=== PATIENT | male | born 1975 | race Caucasian/White ===

== ENCOUNTER 2017-08-15 11:33 | Inpatient (IN) | payer OTHER ==
[2017-08-15 12:14] VITALS: BMI 34.1
--- NOTE | 2017-08-15 14:22 | HP ---
CIWA Score - CIWA Score Nausea/Vomitin-Mild Nausea/No Vomiting Muscle Tremors: 4-Moderate,w/Arms Extend Anxiety: 4-Mod. Anxious/Guarded Agitation: 4-Moderately Restless Paroxysmal Sweats: 1-Minimal Palms Moist Orientation: 0-Oriented Tacttile Disturbances: 1-Very Mild Itch/Numbness Auditory Disturbances: 0-None Visual Disturbances: 0-None Headache: 0-None Present CIWA-Ar Total Score: 15 Admission ROS BHS - HPI Chief Complaint: alcohol withdrawal sx Allergies/Adverse Reactions: Allergies Allergy/AdvReac Type Severity Reaction Status Date / Time No Known Allergies Allergy Verified 08/15/17 12:04 History of Present Illness: 42 years old male with long history of alcohol dependence has legs neuropathy is admitted to detox cirrhosis of the liver treated with TACE implant 11/2016 and 04/2017 radiation, recommended surgically removal of the cancer cell or liver transplant Exam Limitations: No Limitations - Ebola screening Have you traveled outside of the country in the last 21 days: No Have you had contact with anyone from an Ebola affected area: No Have you been sick,other than usual withdrawal symptoms: No Do you have a fever: No - Review of Systems Constitutional: Changes in sleep, Weight Stable EENT: reports: No Symptoms Reported Respiratory: reports: No Symptoms reported Cardiac: reports: No Symptoms Reported GI: reports: Nausea, Poor Fluid Intake, Abdominal cramping : reports: No Symptoms Reported Musculoskeletal: reports: No Symptoms Reported Integumentary: reports: Rash (mid chest) Neuro: reports: Tremors Endocrine: reports: No Symptoms Reported Hematology: reports: No Symptoms Reported Psychiatric: reports: Judgement Intact, Mood/Affect Appropiate, Orientated x3 Other Systems: Reviewed and Negative Patient History - Patient Medical History Hx Anemia: No Hx Asthma: No Hx Chronic Obstructive Pulmonary Disease (COPD): No Hx Cancer: No Hx Cardiac Disorders: No Hx Congestive Heart Failure: No Hx Hypertension: No Hx Hypercholesterolemia: No Hx Pacemaker: No HX Cerebrovascular Accident: No Hx Seizures: No Hx Dementia: No Hx Diabetes: Yes (borderline) Hx Gastrointestinal Disorders: No Hx Liver Disease: Yes (ENLARGED LIVER "BLACK DOTS" ON LIVER AND LUNG) Hx Genitourinary Disorders: No Hx Sexually Transmitted Disorders: No Hx Renal Disease (ESRD): No Hx Thyroid Disease: No Hx Human Immunodeficiency Virus (HIV): No Hx Hepatitis C: No Hx Depression: No Hx Suicide Attempt: No Hx Bipolar Disorder: No Hx Schizophrenia: No - Patient Surgical History Past Surgical History: Yes Hx Neurologic Surgery: No Hx Cataract Extraction: No Hx Cardiac Surgery: No Hx Lung Surgery: No Hx Breast Surgery: No Hx Breast Biopsy: No Hx Abdominal Surgery: No Hx Appendectomy: No Hx Cholecystectomy: No Hx Genitourinary Surgery: No Hx Orthopedic Surgery: No Other Surgical History: implanted TACE 11/2016 Anesthesia Reaction: No - PPD History Previous Implant?: Yes Implanted On Prior [facility] Admission?: Yes Date: 11/13/15 Results: 0 mm - Smoking Cessation Smoking history: Never smoked Have you smoked in the past 12 months: No Hx Chewing Tobacco Use: No Initiated information on smoking cessation: No - Substance & Tx. History Hx Alcohol Use: Yes Hx Substance Use: No Substance Use Type: Alcohol Hx Substance Use Treatment: No - Substances Abused Alcohol-beer Route: Oral Frequency: Daily Amount used: 10-6 pks. Age of first use: 11 Date of Last Use: 08/14/17 Family Disease History - Family Disease History Family Disease History: [place]: Father Admission Physical Exam S - Vital Signs Vital Signs: Vital Signs - 24 hr 08/15/17 12:06 Temperature 97.7 F Pulse Rate 98 H Respiratory 20 Rate Blood Pressure 159/129 - Physical General Appearance: Yes: Appropriately Dressed, Mild Distress, Tremorous, Irritable, Sweating, Anxious HEENTM: Yes: Hearing grossly Normal, Normocephalic, Normal Voice Respiratory: Yes: Chest Non-Tender, Lungs Clear, Normal Breath Sounds, No Respiratory Distress, No Accessory Muscle Use Neck: Yes: Supple, Trachea in good position Breast: Yes: Breasts Symetrical, No Discharge Cardiology: Yes: S1, S2, Tachycardia, Irregular Abdominal: Yes: Normal Bowel Sounds, Non Tender, Flat Genitourinary: Yes: Within Normal Limits Back: Yes: Normal Inspection Musculoskeletal: Yes: full range of Motion, Gait Steady, Back pain, Muscle Pain (knees) Extremities: Yes: Normal Inspection, Normal Range of Motion, Non-Tender, Tremors Neurological: Yes: Fully Oriented, Alert, Motor Strength 5/5, Normal Mood/Affect , Normal Response Integumentary: Yes: Warm, Rash (mid chest) Lymphatic: Yes: Within Normal Limits - Diagnostic (1) Alcohol dependence with uncomplicated withdrawal Current Visit: Yes Status: Acute (2) Cirrhosis of liver Current Visit: Yes Status: Chronic Qualifiers: Hepatic cirrhosis type: alcoholic cirrhosis Ascites presence: without ascites Qualified Code(s): K70.30 - Alcoholic cirrhosis of liver without ascites (3) Neuropathy Current Visit: Yes Status: Chronic Comment: legs Cleared for Admission [facility] - Detox or Rehab [facility] Level of Care: Medically Managed Detox Regimen/Protocol: Librium [facility] Breath Alcohol Content Breath Alcohol Content: 0 Urine Drug Screen - Results Drug Screen Negative: No Urine Drug Screen Results: BZO-Benzodiazepines
[2017-08-15] MEDS ORDERED: chlordiazePOXIDE HCL 25 MG CAPSULE PO PRN (14:28)
[2017-08-15] MEDS ORDERED: IBUPROFEN 400 MG TABLET (FP) PO PRN (14:28)
[2017-08-15] MEDS ORDERED: MAGNESIUM CITRATE 300 ML BOTTLE PO PRN (14:28)
[2017-08-15] MEDS ORDERED: guaiFENesin/D-METHORPHAN HB 10 ML UNIT-DOSE CUPS PO PRN (14:28)
[2017-08-15] MEDS ORDERED: ACETAMINOPHEN 325 MG TABLET (FP) PO PRN (14:28)
[2017-08-15] MEDS ORDERED: MENTHOL/PHENOL 1 EACH UD MM PRN (14:28)
[2017-08-15] MEDS ORDERED: MAG HYDROX/AL HYDROX/SIMETH 30 ML UNIT-DOSE CUP PO PRN (14:28)
[2017-08-15] MEDS ORDERED: P-EPHED 60MG/TRIPROLIDI 2.5MG TABLET PO PRN (14:28)
[2017-08-15] MEDS ORDERED: LOPERAMIDE HCL 2 MG CAPSULE PO PRN (14:28)
[2017-08-15] MEDS ORDERED: MAGNESIUM HYDROX 2400MG/30ML ORAL SUSPENSION 30 ML CUP PO PRN (14:28)
[2017-08-15] MEDS ORDERED: COLLOIDAL OATMEAL 1 BAR EACH TP PRN (14:46)
[2017-08-15] MEDS: amLODIPine BESYLATE 10 MG TABLET (FP) PO SCH (16:39)
[2017-08-15] MEDS: GABAPENTIN 300 MG CAPSULE (FP) PO SCH ×2 (16:39→22:20)
[2017-08-15] MEDS ORDERED: MELATONIN 5 MG TABLETS PO PRN (22:00)
[2017-08-15] MEDS: THIAMINE HCL 100 MG TABLET (FP) PO SCH (22:20)
[2017-08-15] MEDS: chlordiazePOXIDE HCL 25 MG CAPSULE PO SCH (22:20)
[2017-08-15] MEDS: MINERAL OIL/PETROLAT/WATER TOPICAL CREAM 113 GM JAR TP SCH (22:21)
[2017-08-16 03:32] LABS: URINE APPEARANCE CLEAR; URINE BILIRUBIN NEGATIVE (<2.0 mg/dL); URINE COLOR LTYELLOW; URINE GLUCOSE (UA) NEGATIVE (NEGATIVE); URINE KETONE NEGATIVE (NEGATIVE); URINE LEUK ESTERASE NEGATIVE (NEGATIVE); URINE NITRITE NEGATIVE (NEGATIVE); URINE PROTEIN NEGATIVE (NEGATIVE); URINE UROBILINOGEN NEGATIVE mg/dL (0.2-1.0)
[2017-08-16] MEDS: chlordiazePOXIDE HCL 25 MG CAPSULE PO SCH ×4 (06:12→22:20)
[2017-08-16] MEDS: GABAPENTIN 300 MG CAPSULE (FP) PO SCH ×3 (06:12→22:20)
[2017-08-16 09:38] LABS: HEMOGLOBIN 14.9 GM/dL (11.7-16.9); MCH 32.7 pg (25.7-33.7); MCHC 35.6 g/dl (32.0-35.9); MEAN CELL VOLUME 91.9 fl (80-96); MEAN PLT VOLUME 9.1 fl (7.5-11.1); PLATELET COUNT 105 K/MM3 (134-434); RBC 4.57 M/mm3 (4.00-5.60); RDW 13.7 % (11.9-15.9); WHITE BLOOD COUNT 4.8 K/mm3 (4.0-10.0)
[2017-08-16 09:44] LABS: ALBUMIN 3.4 g/dl (3.4-5.0); ANION GAP 8 (8-16); BLOOD UREA NITROGEN 7 mg/dL (7-18); CALCIUM 8.5 mg/dL (8.5-10.1); CHLORIDE 103 mmol/L (98-107); CO2 27 mmol/L (21-32); CREATININE 0.7 mg/dL (0.7-1.3); GLUCOSE,RANDOM 200 mg/dL (74-106); POTASSIUM 3.4 mmol/L (3.5-5.1); SGOT/AST 51 U/L (15-37); SGPT/ALT 59 U/L (12-78); SODIUM 138 mmol/L (136-145); TOT PROT 7.6 g/dl (6.4-8.2)
[2017-08-16 09:45] LABS: ALK PHOS 86 U/L (45-117)
[2017-08-16] MEDS: PRENATAL VITAMINS W/ FOLIC ACID TABLET (FP) PO SCH (10:23)
[2017-08-16] MEDS: amLODIPine BESYLATE 10 MG TABLET (FP) PO SCH (10:23)
--- NOTE | 2017-08-16 11:15 | PN ---
[facility] CIWA - CIWA Score Nausea/Vomitin-No Nausea/No Vomiting Muscle Tremors: None Anxiety: 4-Mod. Anxious/Guarded Agitation: 3 Paroxysmal Sweats: 3 Orientation: 0-Oriented Tacttile Disturbances: 2-Mild Itch/Numbness/Burn Auditory Disturbances: 1-Very Mild Visual Disturbances: 3-Moderate Sensitivity Headache: 0-None Present CIWA-Ar Total Score: 16 S Progress Note (SOAP) Subjective: Body Aches, Interrupted Sleep, Fatigue, Sweating. Objective: PATIENT A & O X 3. NO ACUTE DISTRESS. 08/16/17 11:16 Vital Signs Temperature 96.3 F L 08/16/17 09:12 Pulse Rate 99 H 08/16/17 09:12 Respiratory Rate 20 08/16/17 09:12 Blood Pressure 118/78 08/16/17 09:12 O2 Sat by Pulse Oximetry (%) Laboratory Tests 08/15/17 08/15/17 08/16/17 12:56 15:10 06:14 WBC RBC Hgb Hct MCV MCH MCHC RDW Plt Count MPV Sodium Potassium Chloride Carbon Dioxide Anion Gap BUN Creatinine Creat Clearance w eGFR POC Glucometer 231 151 Random Glucose Calcium Total Bilirubin AST ALT Alkaline Phosphatase Total Protein Albumin Urine Color Ltyellow Urine Appearance Clear Urine pH 9.0 H D Ur Specific [place] 1.006 Urine Protein Negative Urine Glucose (UA) Negative Urine Ketones Negative Urine Blood Negative Urine Nitrite Negative Urine Bilirubin Negative Urine Urobilinogen Negative Ur Leukocyte Esterase Negative 08/16/17 08/16/17 07:00 07:00 WBC 4.8 RBC 4.57 Hgb 14.9 Hct 42.0 MCV 91.9 MCH 32.7 MCHC 35.6 RDW 13.7 Plt Count 105 L D MPV 9.1 D Sodium 138 Potassium 3.4 L Chloride 103 Carbon Dioxide 27 Anion Gap 8 BUN 7 Creatinine 0.7 Creat Clearance w eGFR > 60 POC Glucometer Random Glucose 200 H D Calcium 8.5 Total Bilirubin 1.0 D AST 51 H D ALT 59 D Alkaline Phosphatase 86 Total Protein 7.6 Albumin 3.4 Urine Color Urine Appearance Urine pH Ur Specific [place] Urine Protein Urine Glucose (UA) Urine Ketones Urine Blood Urine Nitrite Urine Bilirubin Urine Urobilinogen Ur Leukocyte Esterase LABS NOTED. HIV AB, RPR RESULTS PENDING. 08/16/17 11:20 Assessment: 08/16/17 11:19 WITHDRAWAL SYMPTOMS. HYPOKALEMIA. THROMBOCYTOPENIA. 08/16/17 11:20 Plan: CONTINUE DETOX. INCREASE DAILY PO FLUID INTAKE. K-DUR, 20 MEQ PO BID. BGM ACBK FOR ELEVATED ADMISSION RANDOM GLUCOSE LEVEL.
--- NOTE | 2017-08-16 11:25 | EKG ---
Test Reason : Blood Pressure : / mmHG Vent. Rate : 072 BPM Atrial Rate : 072 BPM P-R Int : 138 ms QRS Dur : 092 ms QT Int : 404 ms P-R-T Axes : 033 029 026 degrees QTc Int : 442 ms NORMAL SINUS RHYTHM Confirmed by RY ROWE MD ([id number]) on 08/16/2017 11:24:50 AM Referred By: Confirmed By:RY ROWE MD
[2017-08-16] MEDS ORDERED: POTASSIUM CHLORIDE TABS 20 MEQ TABLET.ER (FP) PO ONE (11:35)
[2017-08-16] MEDS: POTASSIUM CHLORIDE TABS 20 MEQ TABLET.ER (FP) PO SCH (17:32)
[2017-08-16] MEDS: THIAMINE HCL 100 MG TABLET (FP) PO SCH (22:20)
[2017-08-16] MEDS: MINERAL OIL/PETROLAT/WATER TOPICAL CREAM 113 GM JAR TP SCH (22:21)
[2017-08-17] MEDS: GABAPENTIN 300 MG CAPSULE (FP) PO SCH ×3 (05:25→22:02)
[2017-08-17] MEDS: chlordiazePOXIDE HCL 25 MG CAPSULE PO SCH ×3 (07:02→18:07)
[2017-08-17] MEDS: POTASSIUM CHLORIDE TABS 20 MEQ TABLET.ER (FP) PO SCH ×2 (10:32→18:06)
[2017-08-17] MEDS: amLODIPine BESYLATE 10 MG TABLET (FP) PO SCH (10:33)
[2017-08-17] MEDS: PRENATAL VITAMINS W/ FOLIC ACID TABLET (FP) PO SCH (10:35)
--- NOTE | 2017-08-17 18:15 | PN ---
S CIWA - CIWA Score Nausea/Vomitin-No Nausea/No Vomiting Muscle Tremors: None Anxiety: 3 Agitation: 3 Paroxysmal Sweats: 3 Orientation: 0-Oriented Tacttile Disturbances: 2-Mild Itch/Numbness/Burn Auditory Disturbances: 2-Mild Harshness/Frighten Visual Disturbances: 0-None Headache: 0-None Present CIWA-Ar Total Score: 13 BHS Progress Note (SOAP) Subjective: Body Aches, Interrupted Sleep, Sweating. Objective: PATIENT A & O X 3, OBSERVED AMBULATING ON UNIT. NO ACUTE DISTRESS. 08/17/17 18:16 Vital Signs Temperature 97.8 F 08/17/17 17:14 Pulse Rate 95 H 08/17/17 17:14 Respiratory Rate 18 08/17/17 17:14 Blood Pressure 116/72 08/17/17 17:14 O2 Sat by Pulse Oximetry (%) Laboratory Tests 08/15/17 08/15/17 08/15/17 07:00 12:56 15:10 WBC RBC Hgb Hct MCV MCH MCHC RDW Plt Count MPV Sodium Potassium Chloride Carbon Dioxide Anion Gap BUN Creatinine Creat Clearance w eGFR POC Glucometer 231 Random Glucose Calcium Total Bilirubin AST ALT Alkaline Phosphatase Total Protein Albumin Urine Color Ltyellow Urine Appearance Clear Urine pH 9.0 H D Ur Specific [place] 1.006 Urine Protein Negative Urine Glucose (UA) Negative Urine Ketones Negative Urine Blood Negative Urine Nitrite Negative Urine Bilirubin Negative Urine Urobilinogen Negative Ur Leukocyte Esterase Negative RPR Titer HIV 1&2 Antibody Screen Negative HIV P24 Antigen Negative 08/16/17 08/16/17 08/16/17 06:14 07:00 07:00 WBC 4.8 RBC 4.57 Hgb 14.9 Hct 42.0 MCV 91.9 MCH 32.7 MCHC 35.6 RDW 13.7 Plt Count 105 L D MPV 9.1 D Sodium 138 Potassium 3.4 L Chloride 103 Carbon Dioxide 27 Anion Gap 8 BUN 7 Creatinine 0.7 Creat Clearance w eGFR > 60 POC Glucometer 151 Random Glucose 200 H D Calcium 8.5 Total Bilirubin 1.0 D AST 51 H D ALT 59 D Alkaline Phosphatase 86 Total Protein 7.6 Albumin 3.4 Urine Color Urine Appearance Urine pH Ur Specific [place] Urine Protein Urine Glucose (UA) Urine Ketones Urine Blood Urine Nitrite Urine Bilirubin Urine Urobilinogen Ur Leukocyte Esterase RPR Titer HIV 1&2 Antibody Screen HIV P24 Antigen 08/16/17 08/17/17 07:00 05:24 WBC RBC Hgb Hct MCV MCH MCHC RDW Plt Count MPV Sodium Potassium Chloride Carbon Dioxide Anion Gap BUN Creatinine Creat Clearance w eGFR POC Glucometer 138 Random Glucose Calcium Total Bilirubin AST ALT Alkaline Phosphatase Total Protein Albumin Urine Color Urine Appearance Urine pH Ur Specific [place] Urine Protein Urine Glucose (UA) Urine Ketones Urine Blood Urine Nitrite Urine Bilirubin Urine Urobilinogen Ur Leukocyte Esterase RPR Titer Nonreactive HIV 1&2 Antibody Screen HIV P24 Antigen LABS NOTED. Assessment: 08/17/17 18:16 WITHDRAWAL SYMPTOMS. HYPOKALEMIA. 08/17/17 18:17 Plan: CONTINUE DETOX. INCREASE DAILY PO FLUID INTAKE. CONTINUE K-DUR.
[2017-08-17] MEDS: chlordiazePOXIDE 5 MG CAPSULE PO SCH (22:02)
[2017-08-17] MEDS: THIAMINE HCL 100 MG TABLET (FP) PO SCH (22:02)
[2017-08-17] MEDS: MINERAL OIL/PETROLAT/WATER TOPICAL CREAM 113 GM JAR TP SCH (22:03)
[2017-08-18] MEDS: chlordiazePOXIDE 5 MG CAPSULE PO SCH ×3 (05:20→17:35)
[2017-08-18] MEDS: GABAPENTIN 300 MG CAPSULE (FP) PO SCH ×3 (05:20→22:04)
[2017-08-18] MEDS: POTASSIUM CHLORIDE TABS 20 MEQ TABLET.ER (FP) PO SCH ×2 (10:13→17:35)
[2017-08-18] MEDS: amLODIPine BESYLATE 10 MG TABLET (FP) PO SCH (10:13)
[2017-08-18] MEDS: PRENATAL VITAMINS W/ FOLIC ACID TABLET (FP) PO SCH (10:13)
--- NOTE | 2017-08-18 14:59 | PN ---
BHS Progress Note (SOAP) Subjective: Sweating, interrupted sleep Objective: 08/18/17 14:46 Last Vital Signs Temp Pulse Resp BP Pulse Ox 97.5 F L 91 H 20 111/74 08/18/17 13:41 08/18/17 13:41 08/18/17 13:41 08/18/17 13:41 Laboratory Tests 08/15/17 08/15/17 08/15/17 07:00 12:56 15:10 WBC RBC Hgb Hct MCV MCH MCHC RDW Plt Count MPV Sodium Potassium Chloride Carbon Dioxide Anion Gap BUN Creatinine Creat Clearance w eGFR POC Glucometer 231 Random Glucose Calcium Total Bilirubin AST ALT Alkaline Phosphatase Total Protein Albumin Urine Color Ltyellow Urine Appearance Clear Urine pH 9.0 H D Ur Specific [place] 1.006 Urine Protein Negative Urine Glucose (UA) Negative Urine Ketones Negative Urine Blood Negative Urine Nitrite Negative Urine Bilirubin Negative Urine Urobilinogen Negative Ur Leukocyte Esterase Negative RPR Titer HIV 1&2 Antibody Screen Negative HIV P24 Antigen Negative 08/16/17 08/16/17 08/16/17 06:14 07:00 07:00 WBC 4.8 RBC 4.57 Hgb 14.9 Hct 42.0 MCV 91.9 MCH 32.7 MCHC 35.6 RDW 13.7 Plt Count 105 L D MPV 9.1 D Sodium 138 Potassium 3.4 L Chloride 103 Carbon Dioxide 27 Anion Gap 8 BUN 7 Creatinine 0.7 Creat Clearance w eGFR > 60 POC Glucometer 151 Random Glucose 200 H D Calcium 8.5 Total Bilirubin 1.0 D AST 51 H D ALT 59 D Alkaline Phosphatase 86 Total Protein 7.6 Albumin 3.4 Urine Color Urine Appearance Urine pH Ur Specific [place] Urine Protein Urine Glucose (UA) Urine Ketones Urine Blood Urine Nitrite Urine Bilirubin Urine Urobilinogen Ur Leukocyte Esterase RPR Titer HIV 1&2 Antibody Screen HIV P24 Antigen 08/16/17 08/17/17 08/18/17 07:00 05:24 05:19 WBC RBC Hgb Hct MCV MCH MCHC RDW Plt Count MPV Sodium Potassium Chloride Carbon Dioxide Anion Gap BUN Creatinine Creat Clearance w eGFR POC Glucometer 138 254 Random Glucose Calcium Total Bilirubin AST ALT Alkaline Phosphatase Total Protein Albumin Urine Color Urine Appearance Urine pH Ur Specific [place] Urine Protein Urine Glucose (UA) Urine Ketones Urine Blood Urine Nitrite Urine Bilirubin Urine Urobilinogen Ur Leukocyte Esterase RPR Titer Nonreactive HIV 1&2 Antibody Screen HIV P24 Antigen Labs reviewed: K 3.4, hyperglycemia Assessment: 08/18/17 14:47 Withdrawal symptoms Noted with mild hypokalemia and hyperglycemia secondary to DMT2 Plan: Continue detox Encouraged PO hydration Mild hypokalemia: on PO potassium supplement Hyperglycemia secondary to DMT2: start FS TID ac meal, start insulin novolog sliding scale coverage, start januvia 100mg PO daily, first dose today
[2017-08-18] MEDS ORDERED: sitaGLIPtin PHOSPHATE 50 MG TABLET PO ONE (15:15)
[2017-08-18] MEDS ORDERED: sitaGLIPtin PHOSPHATE 100 MG TABLET (FP) PO ONE (15:45)
[2017-08-18] MEDS ORDERED: INSULIN (NOVOLOG) ASPART 100 UNITS/ML 10ML VIAL ONE (17:03)
[2017-08-18] MEDS: INSULIN SLIDING SCALE (NOVOLOG) 1 VIAL SQ SCH (17:37)
--- NOTE | 2017-08-18 18:26 | PN ---
[facility] Progress Note Note: Per RN Ada, pt denies being a diabetic and does not understand why BGM is being done. H& P - 'borderline DM'. Chemistry and POC testing elevated blood glucose. Pt refused the insulin coverage for his FS - 256mg/dl, and refused januvia. Pt informed rfp writer that his sugar has been elevated because he has been drinking a lot of juice on the unit and using a lot of sugar in his cereal., states he refuses the DM meds because (a) he is not diabetic and (2) he has elevated liver dx. Educated to stop his high sugar diet and drink water instead. Verbalized understanding.
[2017-08-18] MEDS: chlordiazePOXIDE HCL 10 MG CAPSULE PO SCH (22:04)
[2017-08-18] MEDS: THIAMINE HCL 100 MG TABLET (FP) PO SCH (22:04)
[2017-08-18] MEDS: MINERAL OIL/PETROLAT/WATER TOPICAL CREAM 113 GM JAR TP SCH (22:05)
[2017-08-19] MEDS: chlordiazePOXIDE HCL 10 MG CAPSULE PO SCH ×2 (05:39→10:29)
[2017-08-19] MEDS: GABAPENTIN 300 MG CAPSULE (FP) PO SCH (05:39)
[2017-08-19 06:04] VITALS: TEMP 96.7
[2017-08-19] MEDS ORDERED: sitaGLIPtin PHOSPHATE 100 MG TABLET (FP) PO SCH (07:00)
[2017-08-19] MEDS: INSULIN SLIDING SCALE (NOVOLOG) 1 VIAL SQ SCH ×2 (07:55→11:02)
[2017-08-19 09:19] VITALS: BP 135/86; PULSE 94
--- NOTE | 2017-08-19 10:03 | PN ---
BHS Progress Note (SOAP) Subjective: DETOX COMPLETED. ALERT O X 3. AMBULATING WITH STAEDY GAIT. PT AWAITING REHAB BED TODAY. Objective: 08/19/17 10:02 Vital Signs 08/19/17 08/19/17 08/19/17 03:30 06:04 06:30 Temperature 96.7 F L Pulse Rate 82 Respiratory 18 18 18 Rate Blood Pressure 109/67 08/19/17 09:17 Temperature Pulse Rate 94 H Respiratory 20 Rate Blood Pressure 135/86 Laboratory Tests 08/15/17 08/15/17 08/15/17 07:00 12:56 15:10 WBC RBC Hgb Hct MCV MCH MCHC RDW Plt Count MPV Sodium Potassium Chloride Carbon Dioxide Anion Gap BUN Creatinine Creat Clearance w eGFR POC Glucometer 231 Random Glucose Calcium Total Bilirubin AST ALT Alkaline Phosphatase Total Protein Albumin Urine Color Ltyellow Urine Appearance Clear Urine pH 9.0 H D Ur Specific [place] 1.006 Urine Protein Negative Urine Glucose (UA) Negative Urine Ketones Negative Urine Blood Negative Urine Nitrite Negative Urine Bilirubin Negative Urine Urobilinogen Negative Ur Leukocyte Esterase Negative RPR Titer HIV 1&2 Antibody Screen Negative HIV P24 Antigen Negative 08/16/17 08/16/17 08/16/17 06:14 07:00 07:00 WBC 4.8 RBC 4.57 Hgb 14.9 Hct 42.0 MCV 91.9 MCH 32.7 MCHC 35.6 RDW 13.7 Plt Count 105 L D MPV 9.1 D Sodium 138 Potassium 3.4 L Chloride 103 Carbon Dioxide 27 Anion Gap 8 BUN 7 Creatinine 0.7 Creat Clearance w eGFR > 60 POC Glucometer 151 Random Glucose 200 H D Calcium 8.5 Total Bilirubin 1.0 D AST 51 H D ALT 59 D Alkaline Phosphatase 86 Total Protein 7.6 Albumin 3.4 Urine Color Urine Appearance Urine pH Ur Specific [place] Urine Protein Urine Glucose (UA) Urine Ketones Urine Blood Urine Nitrite Urine Bilirubin Urine Urobilinogen Ur Leukocyte Esterase RPR Titer HIV 1&2 Antibody Screen HIV P24 Antigen 08/16/17 08/17/17 08/18/17 07:00 05:24 05:19 WBC RBC Hgb Hct MCV MCH MCHC RDW Plt Count MPV Sodium Potassium Chloride Carbon Dioxide Anion Gap BUN Creatinine Creat Clearance w eGFR POC Glucometer 138 254 Random Glucose Calcium Total Bilirubin AST ALT Alkaline Phosphatase Total Protein Albumin Urine Color Urine Appearance Urine pH Ur Specific [place] Urine Protein Urine Glucose (UA) Urine Ketones Urine Blood Urine Nitrite Urine Bilirubin Urine Urobilinogen Ur Leukocyte Esterase RPR Titer Nonreactive HIV 1&2 Antibody Screen HIV P24 Antigen 08/18/17 16:32 WBC RBC Hgb Hct MCV MCH MCHC RDW Plt Count MPV Sodium Potassium Chloride Carbon Dioxide Anion Gap BUN Creatinine Creat Clearance w eGFR POC Glucometer 266 Random Glucose Calcium Total Bilirubin AST ALT Alkaline Phosphatase Total Protein Albumin Urine Color Urine Appearance Urine pH Ur Specific [place] Urine Protein Urine Glucose (UA) Urine Ketones Urine Blood Urine Nitrite Urine Bilirubin Urine Urobilinogen Ur Leukocyte Esterase RPR Titer HIV 1&2 Antibody Screen HIV P24 Antigen Assessment: 08/19/17 10:02 MEDICALLY STABLE Plan: D/C PT TODAY
--- NOTE | 2017-08-19 10:05 | DS ---
[facility] Detox Discharge Summary Admission Date: 08/15/17 Discharge Date: 08/19/17 - History Present History: Alcohol Dependence Additional Comments: DETOX COMPLETED. ALERT O X 3. PT REPORTS HE HAS PMD(UNABLE TO SPELL NAME)/ PRIMARY CARE AT [facility] FOR FOLLOW UP WITH MEDICAL CARE. Pertinent Past History: PLEASE SEE DX BELOW - Physical Exam Results Vital Signs: Vital Signs Temperature 96.7 F L 08/19/17 06:04 Pulse Rate 94 H 08/19/17 09:17 Respiratory Rate 20 08/19/17 09:17 Blood Pressure 135/86 08/19/17 09:17 O2 Sat by Pulse Oximetry (%) Pertinent Admission Physical Exam Findings: WITHDRAWAL SX Laboratory Tests 08/15/17 08/15/17 08/15/17 07:00 12:56 15:10 WBC RBC Hgb Hct MCV MCH MCHC RDW Plt Count MPV Sodium Potassium Chloride Carbon Dioxide Anion Gap BUN Creatinine Creat Clearance w eGFR POC Glucometer 231 Random Glucose Calcium Total Bilirubin AST ALT Alkaline Phosphatase Total Protein Albumin Urine Color Ltyellow Urine Appearance Clear Urine pH 9.0 H D Ur Specific [place] 1.006 Urine Protein Negative Urine Glucose (UA) Negative Urine Ketones Negative Urine Blood Negative Urine Nitrite Negative Urine Bilirubin Negative Urine Urobilinogen Negative Ur Leukocyte Esterase Negative RPR Titer HIV 1&2 Antibody Screen Negative HIV P24 Antigen Negative 08/16/17 08/16/17 08/16/17 06:14 07:00 07:00 WBC 4.8 RBC 4.57 Hgb 14.9 Hct 42.0 MCV 91.9 MCH 32.7 MCHC 35.6 RDW 13.7 Plt Count 105 L D MPV 9.1 D Sodium 138 Potassium 3.4 L Chloride 103 Carbon Dioxide 27 Anion Gap 8 BUN 7 Creatinine 0.7 Creat Clearance w eGFR > 60 POC Glucometer 151 Random Glucose 200 H D Calcium 8.5 Total Bilirubin 1.0 D AST 51 H D ALT 59 D Alkaline Phosphatase 86 Total Protein 7.6 Albumin 3.4 Urine Color Urine Appearance Urine pH Ur Specific [place] Urine Protein Urine Glucose (UA) Urine Ketones Urine Blood Urine Nitrite Urine Bilirubin Urine Urobilinogen Ur Leukocyte Esterase RPR Titer HIV 1&2 Antibody Screen HIV P24 Antigen 08/16/17 08/17/17 08/18/17 07:00 05:24 05:19 WBC RBC Hgb Hct MCV MCH MCHC RDW Plt Count MPV Sodium Potassium Chloride Carbon Dioxide Anion Gap BUN Creatinine Creat Clearance w eGFR POC Glucometer 138 254 Random Glucose Calcium Total Bilirubin AST ALT Alkaline Phosphatase Total Protein Albumin Urine Color Urine Appearance Urine pH Ur Specific [place] Urine Protein Urine Glucose (UA) Urine Ketones Urine Blood Urine Nitrite Urine Bilirubin Urine Urobilinogen Ur Leukocyte Esterase RPR Titer Nonreactive HIV 1&2 Antibody Screen HIV P24 Antigen 08/18/17 16:32 WBC RBC Hgb Hct MCV MCH MCHC RDW Plt Count MPV Sodium Potassium Chloride Carbon Dioxide Anion Gap BUN Creatinine Creat Clearance w eGFR POC Glucometer 266 Random Glucose Calcium Total Bilirubin AST ALT Alkaline Phosphatase Total Protein Albumin Urine Color Urine Appearance Urine pH Ur Specific [place] Urine Protein Urine Glucose (UA) Urine Ketones Urine Blood Urine Nitrite Urine Bilirubin Urine Urobilinogen Ur Leukocyte Esterase RPR Titer HIV 1&2 Antibody Screen HIV P24 Antigen - Treatment Hospital Course: Detox Protocol Followed, Detoxed Safely, Responded well, Discharged Condition Good, Rehab Referral Accepted Patient has Accepted a Rehab Referral to: [facility] - Medication Discharge Medications: Ambulatory Orders Betamethasone Dipropionate [Diprolene] 1 applic TP BID 08/15/17 Clotrimazole [Lotrimin 1% Cream -] 1 applic TP BID 08/15/17 Folic Acid - 1 mg PO DAILY 08/15/17 Gabapentin [Neurontin -] 300 mg PO TID 08/15/17 Multivitamins [Tab-A-Vit -] 1 tab PO DAILY 08/15/17 Thiamine HCl [Vitamin B-1] 100 mg PO DAILY 08/15/17 Tramadol HCl [Ultram] 50 mg PO Q8H 08/15/17 - AMA Did Patient Leave Against Medical Advice: No
[2017-08-19] MEDS: POTASSIUM CHLORIDE TABS 20 MEQ TABLET.ER (FP) PO SCH (10:21)
[2017-08-19] MEDS: amLODIPine BESYLATE 10 MG TABLET (FP) PO SCH (10:21)
[2017-08-19] MEDS: PRENATAL VITAMINS W/ FOLIC ACID TABLET (FP) PO SCH (10:21)
== END 2017-08-19 12:23 | disposition other institution (70) | DRG 775 ==
LOC: YASAS 11:33 → Y3N 14:37
PROVIDERS: ADMIT Internal Medicine; ATTEND Internal Medicine
PROC: HZ2ZZZZ Detoxification Services for Substance Abuse Treatment (ICD-10-PCS; principal; 2017-08-15)
DX: F10.230 Alcohol dependence with withdrawal, uncomplicated (principal); K70.30 Alcoholic cirrhosis of liver without ascites; E11.65 Type 2 diabetes mellitus with hyperglycemia; Z79.4 Long term (current) use of insulin; E87.6 Hypokalemia; G62.9 Polyneuropathy, unspecified
CPT/HCPCS: 36415; 80053; 81003; 82962; 85027; 86593; 87389; 93005; 93010

== ENCOUNTER 2017-08-19 12:29 | Inpatient (IN) | payer OTHER ==
--- NOTE | 2017-08-19 13:11 | HP ---
Psychiatrist Admission - Data Date of interview: 08/19/17 Admission source: 3N Identifying data: This the second [facility] admission for this 42 years old single male, unemployed, homeless Medical History: Significant for borderline diabetes mellitus, hypertension, cirrhosis of the liver, liver cancer treated with TACE implant 11/2016 and 2017 radiation. He was recommended surgical removal of the cancer cell or liver transplant. Told marketing copywriter that his surgeon will not operate on him unless he is sober Psychiatric History: Denies history of previous psychiatric treatment Physical/Sexual Abuse/Trauma History: Denies history of emotional, physical or sexual abuse as well as DV relationship. No service Additional Comment: Reports history of 2 previous arrests for DWI and drinking in public Vital Signs: Vital Signs - 24 hr 08/19/17 12:45 Temperature 97.9 F Pulse Rate 97 H Respiratory 18 Rate Blood Pressure 139/76 Allergies/Adverse Reactions: Allergies Allergy/AdvReac Type Severity Reaction Status Date / Time No Known Allergies Allergy Verified 08/15/17 12:04 Date of last physical exam: 08/15/17 Concur with the findings of this exam: Yes - Substance Abuse/Tx History Hx Alcohol Use: Yes Substance Use Type: Alcohol (Started drinking alcohol at age 11, consumes 10x 6pk of beer daily. Last drank on 08/14/17) Hx Substance Use Treatment: Yes (one recent inpt detox & one previous inpt rehab @ [facility]) Mental Status Exam - Mental Status Exam Alert and Oriented to: Time, Place, Person Cognitive Function: Fair Patient Appearance: Well Groomed Mood: Hopeful, Euthymic Patient Behavior: Cooperative Speech Pattern: Clear Voice Loudness: Normal Thought Process: Intact, Goal Oriented Thought Disorder: Not Present Hallucinations: Denies Suicidal Ideation: Denies Homicidal Ideation: Denies Insight/Judgement: Fair Sleep: Well Appetite: Good Muscle strength/Tone: Normal Gait/Station: Normal Psychiatric Findings - Problem List ([place] 1, 2,3) (1) Alcohol dependence Current Visit: No Status: Acute (2) Cirrhosis of liver Current Visit: No Status: Chronic Qualifiers: Hepatic cirrhosis type: alcoholic cirrhosis Ascites presence: without ascites Qualified Code(s): K70.30 - Alcoholic cirrhosis of liver without ascites (3) History of hypertension Current Visit: No Status: Chronic Comment: "ABOVE 200/100" EARLY 20S (4) Neuropathy Current Visit: No Status: Chronic Comment: legs (5) Type 2 diabetes mellitus with hyperglycemia Current Visit: No Status: Chronic (6) Liver cancer Current Visit: Yes Status: Chronic - Initial Treatment Plan Initial Treatment Plan: Monitor progress
[2017-08-19] MEDS ORDERED: LOPERAMIDE HCL 2 MG CAPSULE PO PRN (14:17)
[2017-08-19] MEDS ORDERED: hydrOXYzine PAMOATE 50 MG CAPSULE (FP) PO PRN (14:17)
[2017-08-19] MEDS ORDERED: MAG HYDROX/AL HYDROX/SIMETH 30 ML UNIT-DOSE CUP PO PRN (14:17)
[2017-08-19] MEDS ORDERED: MAGNESIUM CITRATE 300 ML BOTTLE PO PRN (14:17)
[2017-08-19] MEDS ORDERED: guaiFENesin/D-METHORPHAN HB 10 ML UNIT-DOSE CUPS PO PRN (14:17)
[2017-08-19] MEDS ORDERED: MAGNESIUM HYDROX 2400MG/30ML ORAL SUSPENSION 30 ML CUP PO PRN (14:17)
[2017-08-19] MEDS ORDERED: ACETAMINOPHEN 325 MG TABLET (FP) PO PRN (14:17)
[2017-08-19] MEDS ORDERED: MENTHOL/PHENOL 1 EACH UD MM PRN (14:17)
[2017-08-19] MEDS ORDERED: P-EPHED 60MG/TRIPROLIDI 2.5MG TABLET PO PRN (14:17)
[2017-08-19] MEDS ORDERED: COLLOIDAL OATMEAL 1 BAR EACH TP PRN (14:18)
[2017-08-19] MEDS: IBUPROFEN 400 MG TABLET (FP) PO PRN (17:22)
[2017-08-19] MEDS ORDERED: MELATONIN 5 MG TABLETS PO PRN (22:00)
[2017-08-19] MEDS: GABAPENTIN 300 MG CAPSULE (FP) PO SCH (22:37)
[2017-08-19] MEDS: THIAMINE HCL 100 MG TABLET (FP) PO SCH (22:37)
[2017-08-19] MEDS: BETAMETHASONE DIPR 0.05% OINT 45 GM TUBE TP SCH (22:40)
[2017-08-20] MEDS: GABAPENTIN 300 MG CAPSULE (FP) PO SCH ×3 (06:24→21:08)
[2017-08-20] MEDS: PRENATAL VITAMINS W/ FOLIC ACID TABLET (FP) PO SCH (09:45)
[2017-08-20] MEDS: BETAMETHASONE DIPR 0.05% OINT 45 GM TUBE TP SCH ×2 (09:46→21:08)
--- NOTE | 2017-08-20 15:57 | PN ---
S Progress Note Note: Patient requested water pitcher for increase thirst. discussed lab results with patient. Patient to follow up with oncologist upon d/c for scheduled surgery.
[2017-08-20] MEDS: IBUPROFEN 400 MG TABLET (FP) PO PRN ×2 (16:00→23:25)
[2017-08-20] MEDS: CLOTRIMAZOLE 1% CREAM 15 GM TUBE TP SCH (21:08)
[2017-08-20] MEDS: THIAMINE HCL 100 MG TABLET (FP) PO SCH (21:08)
[2017-08-21] MEDS: GABAPENTIN 300 MG CAPSULE (FP) PO SCH ×3 (09:37→21:24)
[2017-08-21] MEDS: PRENATAL VITAMINS W/ FOLIC ACID TABLET (FP) PO SCH (09:47)
[2017-08-21] MEDS: BETAMETHASONE DIPR 0.05% OINT 45 GM TUBE TP SCH ×2 (09:48→21:25)
[2017-08-21] MEDS: IBUPROFEN 400 MG TABLET (FP) PO PRN ×2 (09:48→19:58)
[2017-08-21] MEDS: CLOTRIMAZOLE 1% CREAM 15 GM TUBE TP SCH ×2 (09:48→21:24)
[2017-08-21] MEDS ORDERED: FOLIC ACID 1 MG TABLET (FP) PO SCH (10:00)
[2017-08-21] MEDS: THIAMINE HCL 100 MG TABLET (FP) PO SCH (21:24)
[2017-08-22] MEDS: GABAPENTIN 300 MG CAPSULE (FP) PO SCH ×3 (06:25→22:00)
[2017-08-22] MEDS: PRENATAL VITAMINS W/ FOLIC ACID TABLET (FP) PO SCH (09:31)
[2017-08-22] MEDS: BETAMETHASONE DIPR 0.05% OINT 45 GM TUBE TP SCH ×2 (09:32→22:00)
[2017-08-22] MEDS: CLOTRIMAZOLE 1% CREAM 15 GM TUBE TP SCH ×2 (09:32→22:00)
[2017-08-22] MEDS: IBUPROFEN 400 MG TABLET (FP) PO PRN (14:46)
[2017-08-22] MEDS: THIAMINE HCL 100 MG TABLET (FP) PO SCH (22:00)
[2017-08-23] MEDS: GABAPENTIN 300 MG CAPSULE (FP) PO SCH ×3 (06:26→21:18)
[2017-08-23] MEDS: IBUPROFEN 400 MG TABLET (FP) PO PRN ×3 (06:27→23:50)
[2017-08-23] MEDS: BETAMETHASONE DIPR 0.05% OINT 45 GM TUBE TP SCH ×2 (09:46→21:19)
[2017-08-23] MEDS: PRENATAL VITAMINS W/ FOLIC ACID TABLET (FP) PO SCH (09:46)
[2017-08-23] MEDS: CLOTRIMAZOLE 1% CREAM 15 GM TUBE TP SCH ×2 (09:46→21:19)
[2017-08-23] MEDS: THIAMINE HCL 100 MG TABLET (FP) PO SCH (21:18)
[2017-08-24] MEDS: GABAPENTIN 300 MG CAPSULE (FP) PO SCH ×3 (06:25→22:08)
[2017-08-24] MEDS: CLOTRIMAZOLE 1% CREAM 15 GM TUBE TP SCH ×2 (09:29→22:08)
[2017-08-24] MEDS: PRENATAL VITAMINS W/ FOLIC ACID TABLET (FP) PO SCH (09:29)
[2017-08-24] MEDS: BETAMETHASONE DIPR 0.05% OINT 45 GM TUBE TP SCH ×2 (09:29→22:08)
[2017-08-24] MEDS: IBUPROFEN 400 MG TABLET (FP) PO PRN (15:01)
[2017-08-24] MEDS: THIAMINE HCL 100 MG TABLET (FP) PO SCH (22:08)
[2017-08-25] MEDS: GABAPENTIN 300 MG CAPSULE (FP) PO SCH ×3 (06:31→21:57)
[2017-08-25] MEDS: PRENATAL VITAMINS W/ FOLIC ACID TABLET (FP) PO SCH (10:41)
[2017-08-25] MEDS: BETAMETHASONE DIPR 0.05% OINT 45 GM TUBE TP SCH ×2 (10:41→21:57)
[2017-08-25] MEDS: CLOTRIMAZOLE 1% CREAM 15 GM TUBE TP SCH ×2 (10:41→21:57)
[2017-08-25] MEDS: THIAMINE HCL 100 MG TABLET (FP) PO SCH (21:57)
[2017-08-25] MEDS ORDERED: PT OWN MED DRAWER 7, Y5N ONE (22:03)
[2017-08-26] MEDS: GABAPENTIN 300 MG CAPSULE (FP) PO SCH ×3 (06:53→22:05)
[2017-08-26] MEDS ORDERED: PT OWN MED DRAWER 7, Y5N ONE (08:23)
[2017-08-26] MEDS: BETAMETHASONE DIPR 0.05% OINT 45 GM TUBE TP SCH ×2 (10:25→22:05)
[2017-08-26] MEDS: CLOTRIMAZOLE 1% CREAM 15 GM TUBE TP SCH ×2 (10:25→22:05)
[2017-08-26] MEDS: PRENATAL VITAMINS W/ FOLIC ACID TABLET (FP) PO SCH (10:26)
[2017-08-26] MEDS: THIAMINE HCL 100 MG TABLET (FP) PO SCH (22:05)
[2017-08-27] MEDS: GABAPENTIN 300 MG CAPSULE (FP) PO SCH ×3 (06:48→22:21)
[2017-08-27] MEDS: PRENATAL VITAMINS W/ FOLIC ACID TABLET (FP) PO SCH (10:38)
[2017-08-27] MEDS: CLOTRIMAZOLE 1% CREAM 15 GM TUBE TP SCH ×2 (10:38→22:21)
[2017-08-27] MEDS: BETAMETHASONE DIPR 0.05% OINT 45 GM TUBE TP SCH ×2 (10:38→22:21)
[2017-08-27] MEDS: THIAMINE HCL 100 MG TABLET (FP) PO SCH (22:21)
[2017-08-28] MEDS: GABAPENTIN 300 MG CAPSULE (FP) PO SCH ×3 (06:42→22:02)
[2017-08-28] MEDS: CLOTRIMAZOLE 1% CREAM 15 GM TUBE TP SCH ×2 (10:59→22:02)
[2017-08-28] MEDS: PRENATAL VITAMINS W/ FOLIC ACID TABLET (FP) PO SCH (10:59)
[2017-08-28] MEDS: BETAMETHASONE DIPR 0.05% OINT 45 GM TUBE TP SCH ×2 (10:59→22:02)
[2017-08-28] MEDS: THIAMINE HCL 100 MG TABLET (FP) PO SCH (22:02)
[2017-08-29] MEDS: GABAPENTIN 300 MG CAPSULE (FP) PO SCH ×3 (06:32→22:07)
[2017-08-29] MEDS: BETAMETHASONE DIPR 0.05% OINT 45 GM TUBE TP SCH ×2 (10:45→22:07)
[2017-08-29] MEDS: PRENATAL VITAMINS W/ FOLIC ACID TABLET (FP) PO SCH (10:45)
[2017-08-29] MEDS: CLOTRIMAZOLE 1% CREAM 15 GM TUBE TP SCH ×2 (10:45→22:07)
[2017-08-29] MEDS: THIAMINE HCL 100 MG TABLET (FP) PO SCH (22:08)
[2017-08-30] MEDS: GABAPENTIN 300 MG CAPSULE (FP) PO SCH ×3 (06:00→23:33)
[2017-08-30] MEDS ORDERED: PT OWN MED DRAWER 7, Y5N ONE (08:18)
[2017-08-30] MEDS: BETAMETHASONE DIPR 0.05% OINT 45 GM TUBE TP SCH ×2 (10:29→23:33)
[2017-08-30] MEDS: CLOTRIMAZOLE 1% CREAM 15 GM TUBE TP SCH ×2 (10:29→23:33)
[2017-08-30] MEDS: PRENATAL VITAMINS W/ FOLIC ACID TABLET (FP) PO SCH (10:30)
[2017-08-30] MEDS: THIAMINE HCL 100 MG TABLET (FP) PO SCH (23:33)
[2017-08-31] MEDS: GABAPENTIN 300 MG CAPSULE (FP) PO SCH ×3 (06:37→23:05)
[2017-08-31] MEDS: CLOTRIMAZOLE 1% CREAM 15 GM TUBE TP SCH ×2 (10:46→23:05)
[2017-08-31] MEDS: BETAMETHASONE DIPR 0.05% OINT 45 GM TUBE TP SCH ×2 (10:46→23:05)
[2017-08-31] MEDS: PRENATAL VITAMINS W/ FOLIC ACID TABLET (FP) PO SCH (10:46)
[2017-08-31] MEDS: THIAMINE HCL 100 MG TABLET (FP) PO SCH (23:05)
[2017-09-01] MEDS: GABAPENTIN 300 MG CAPSULE (FP) PO SCH ×3 (06:45→22:03)
[2017-09-01] MEDS: PRENATAL VITAMINS W/ FOLIC ACID TABLET (FP) PO SCH (09:33)
[2017-09-01] MEDS: BETAMETHASONE DIPR 0.05% OINT 45 GM TUBE TP SCH ×2 (09:33→22:03)
[2017-09-01] MEDS: CLOTRIMAZOLE 1% CREAM 15 GM TUBE TP SCH ×2 (09:33→22:03)
[2017-09-01] MEDS: THIAMINE HCL 100 MG TABLET (FP) PO SCH (22:03)
[2017-09-02] MEDS: GABAPENTIN 300 MG CAPSULE (FP) PO SCH ×3 (06:14→21:49)
[2017-09-02] MEDS: CLOTRIMAZOLE 1% CREAM 15 GM TUBE TP SCH ×2 (09:46→21:49)
[2017-09-02] MEDS: BETAMETHASONE DIPR 0.05% OINT 45 GM TUBE TP SCH ×2 (09:46→21:49)
[2017-09-02] MEDS: PRENATAL VITAMINS W/ FOLIC ACID TABLET (FP) PO SCH (09:46)
[2017-09-02] MEDS: THIAMINE HCL 100 MG TABLET (FP) PO SCH (21:50)
[2017-09-03] MEDS: GABAPENTIN 300 MG CAPSULE (FP) PO SCH ×3 (06:37→22:47)
[2017-09-03] MEDS: BETAMETHASONE DIPR 0.05% OINT 45 GM TUBE TP SCH ×2 (10:51→22:46)
[2017-09-03] MEDS: PRENATAL VITAMINS W/ FOLIC ACID TABLET (FP) PO SCH (10:51)
[2017-09-03] MEDS: CLOTRIMAZOLE 1% CREAM 15 GM TUBE TP SCH ×2 (10:51→22:47)
[2017-09-03] MEDS: THIAMINE HCL 100 MG TABLET (FP) PO SCH (22:47)
[2017-09-04] MEDS: GABAPENTIN 300 MG CAPSULE (FP) PO SCH ×3 (06:00→22:33)
[2017-09-04] MEDS: CLOTRIMAZOLE 1% CREAM 15 GM TUBE TP SCH ×2 (10:42→22:33)
[2017-09-04] MEDS: PRENATAL VITAMINS W/ FOLIC ACID TABLET (FP) PO SCH (10:42)
[2017-09-04] MEDS: BETAMETHASONE DIPR 0.05% OINT 45 GM TUBE TP SCH ×2 (10:42→22:33)
[2017-09-04] MEDS: THIAMINE HCL 100 MG TABLET (FP) PO SCH (22:34)
[2017-09-05] MEDS: GABAPENTIN 300 MG CAPSULE (FP) PO SCH ×3 (06:17→21:36)
[2017-09-05] MEDS: BETAMETHASONE DIPR 0.05% OINT 45 GM TUBE TP SCH ×2 (11:00→21:36)
[2017-09-05] MEDS: CLOTRIMAZOLE 1% CREAM 15 GM TUBE TP SCH ×2 (11:01→21:36)
[2017-09-05] MEDS: PRENATAL VITAMINS W/ FOLIC ACID TABLET (FP) PO SCH (11:01)
[2017-09-05] MEDS: THIAMINE HCL 100 MG TABLET (FP) PO SCH (21:36)
[2017-09-06] MEDS: GABAPENTIN 300 MG CAPSULE (FP) PO SCH ×3 (05:53→22:15)
[2017-09-06] MEDS: CLOTRIMAZOLE 1% CREAM 15 GM TUBE TP SCH ×2 (10:23→22:15)
[2017-09-06] MEDS: BETAMETHASONE DIPR 0.05% OINT 45 GM TUBE TP SCH ×2 (10:23→22:15)
[2017-09-06] MEDS: PRENATAL VITAMINS W/ FOLIC ACID TABLET (FP) PO SCH (10:24)
[2017-09-06] MEDS: THIAMINE HCL 100 MG TABLET (FP) PO SCH (22:15)
[2017-09-07] MEDS: GABAPENTIN 300 MG CAPSULE (FP) PO SCH ×3 (06:53→22:06)
[2017-09-07] MEDS: PRENATAL VITAMINS W/ FOLIC ACID TABLET (FP) PO SCH (10:27)
[2017-09-07] MEDS: CLOTRIMAZOLE 1% CREAM 15 GM TUBE TP SCH ×2 (10:27→22:05)
[2017-09-07] MEDS: BETAMETHASONE DIPR 0.05% OINT 45 GM TUBE TP SCH ×2 (10:27→22:05)
[2017-09-07] MEDS: THIAMINE HCL 100 MG TABLET (FP) PO SCH (22:06)
[2017-09-08 06:49] VITALS: TEMP 97.9
[2017-09-08] MEDS: GABAPENTIN 300 MG CAPSULE (FP) PO SCH ×3 (07:08→23:05)
[2017-09-08] MEDS: BETAMETHASONE DIPR 0.05% OINT 45 GM TUBE TP SCH ×2 (09:43→23:05)
[2017-09-08] MEDS: CLOTRIMAZOLE 1% CREAM 15 GM TUBE TP SCH ×2 (09:43→23:05)
[2017-09-08] MEDS: PRENATAL VITAMINS W/ FOLIC ACID TABLET (FP) PO SCH (09:43)
[2017-09-08] MEDS: THIAMINE HCL 100 MG TABLET (FP) PO SCH (23:05)
[2017-09-09] MEDS: GABAPENTIN 300 MG CAPSULE (FP) PO SCH (06:16)
[2017-09-09 06:42] VITALS: BP 108/71; PULSE 75
--- NOTE | 2017-09-09 09:04 | PN ---
Psychiatric Progress Note Vital Signs: Vital Signs Period Temp Pulse Resp BP Sys/Blackwood Pulse Ox Last 24 Hr 97.9 F 75 18-18 108/71 Date of Session: 09/09/17 Chief Complaint:: Discharge Note HPI: Patient addressing Alcohol Dependence ROS: Citthosis of the liver, HTN, Type 2 DM, Neuropathy, Liver Disease Current Medications: Active Medications Generic Name Dose Route Start Last Admin Trade Name Freq PRN Reason Stop Dose Admin Acetaminophen 650 mg 08/19/17 14:17 Tylenol - PO Q4H PRN FEVER Al Hydroxide/Mg Hydroxide 30 ml 08/19/17 14:17 Mylanta Oral Suspension - PO Q6H PRN DYSPEPSIA Betamethasone Dipropionate 1 applic 08/19/17 22:00 09/08/17 23:05 Diprolene 0.05% Ointment - TP Not Given BID [facility] Clotrimazole 1 applic 08/20/17 22:00 09/08/17 23:05 Lotrimin 1% Cream - TP Not Given BID [facility] Eucalyptus/Menthol/Phenol/Sorbitol 1 each 08/19/17 14:17 Cepastat Lozenge - MM Q4H PRN SORE THROAT Gabapentin 300 mg 08/19/17 22:00 09/09/17 06:16 Neurontin - PO Not Given TID [facility]LAQUITO Guaifenesin 10 ml 08/19/17 14:17 Robitussin Dm - PO Q6H PRN COUGH Hydroxyzine Pamoate 50 mg 08/19/17 14:17 Vistaril - PO Q4H PRN AGITATION Ibuprofen 800 mg 08/21/17 13:05 08/24/17 15:01 Motrin - PO 800 mg Q8H PRN Administration FEVER Loperamide HCl 4 mg 08/19/17 14:17 Imodium - PO Q6H PRN DIARRHEA Magnesium Citrate 300 ml 08/19/17 14:17 Citroma - PO Q48H PRN CONSTIPATION Magnesium Hydroxide 30 ml 08/19/17 14:17 Milk Of Magnesia - PO DAILY PRN CONSTIPATION Melatonin 5 mg 08/19/17 22:00 Melatonin PO HS PRN INSOMNIA Multivit/Folic Acid/Iron 1 tab 08/20/17 10:00 09/08/17 09:43 Vitamins (Sjr) - PO Not Given DAILY [facility] Pseudoephedrine/Triprolidine 1 combo 08/19/17 14:17 Actifed - PO TID PRN NASAL CONGESTION Thiamine HCl 100 mg 08/19/17 22:00 09/08/17 23:05 Vitamin B1 - PO Not Given HS FLAQUITO Current Side Effect: No Lab tests ordered: Yes Lab tests reviewed: Yes Provider note:: Patient has completed this program today. He has met his treatment goals and will continue to address his issue in outpatient treatment at [facility] at [address] [place] [address]. Told entry writer that from his participation in this program, he has learned the importance of making meetings and have a sponsor. He is stable for discharge today Total face to face time:: 35 Mental Status Exam - Mental Status Exam Alert and Oriented to: Time, Place, Person Cognitive Function: Fair Patient Appearance: Well Groomed Mood: Hopeful, Euthymic Patient Behavior: Cooperative Speech Pattern: Clear Voice Loudness: Normal Thought Process: Intact, Goal Oriented Thought Disorder: Not Present Hallucinations: Denies Suicidal Ideation: Denies Homicidal Ideation: Denies Insight/Judgement: Fair Sleep: Fair Appetite: Good Muscle strength/Tone: Normal Gait/Station: Normal Psychiatric Treatment Plan - Problem List (1) Alcohol dependence Current Visit: No (2) Cirrhosis of liver Current Visit: No Qualifiers: Hepatic cirrhosis type: alcoholic cirrhosis Ascites presence: without ascites Qualified Code(s): K70.30 - Alcoholic cirrhosis of liver without ascites (3) History of hypertension Current Visit: No Comment: "ABOVE 200/100" EARLY 20'S (4) Neuropathy Current Visit: No Comment: legs (5) Type 2 diabetes mellitus with hyperglycemia Current Visit: No (6) Liver cancer Current Visit: Yes Initial treatment plan: Patient is discharged today and referred to [facility] for outpatient treatment
== END 2017-09-09 08:55 | disposition home or self-care (01) | DRG 772 ==
LOC: YASAS 12:29 → Y3W 12:32
PROVIDERS: ADMIT Psychiatry & Neurology Psychiatry; ATTEND Psychiatry & Neurology Psychiatry
PROC: HZ42ZZZ Group Counseling for Substance Abuse Treatment, Cognitive-Behavioral (ICD-10-PCS; principal; 2017-08-19)
DX: F10.20 Alcohol dependence, uncomplicated (principal); I10 Essential (primary) hypertension; K70.30 Alcoholic cirrhosis of liver without ascites; G62.9 Polyneuropathy, unspecified; E11.9 Type 2 diabetes mellitus without complications; C22.7 Other specified carcinomas of liver